=== PATIENT | female | born 1980 | race Caucasian/White ===

== ENCOUNTER 2020-11-05 01:41 | Emergency (ER) | payer OTHER, SELFPAY ==
[2020-11-05 01:57] VITALS: BP 160/81; PULSE 83; RESP 16; TEMP 36.4; O2SAT 97; BMI 37.5
[2020-11-05] MEDS: KETOROLAC 30 MG/ML VIAL IM (02:53)
[2020-11-05] MEDS: OXYCODONE/ACETAMINOPHEN 5/325 TABLET 2 TAB PO (02:54)
--- NOTE | 2020-11-05 05:07 | ED.DENTAL ---
HPI - Dental/Oral General Chief complaint: Dental/Oral Stated complaint: Tooth infection-so much pain Time Seen by Provider: 11/05/20 02:00 Source: patient Mode of arrival: Ambulatory Limitations: no limitations History of Present Illness HPI Narrative: Otherwise healthy 40-year-old woman prevents with severe dental pain involving tooth number 31 she apparently has had issues with tooth 2. Above and while having that pulled there was in appropriate drilling that was reportedly done in tooth 1. Requiring it to be pulled also. This happened over a year ago and has left her significantly traumatized to the point that she has been unwilling to follow-up with her dentist regarding current pain with tooth number 31 tonight the pain was so severe she comes in for further evaluation. She denies facial swelling, purulence discharge into her mouth, fevers, cough, chills, vomiting, abdominal pain. Related Data Previous Rx's Medication Instructions Recorded amoxicillin 500 mg capsule 500 mg PO TID #15 cap 11/05/20 oxycodone-acetaminophen 5 mg-325 1 tab PO Q6H PRN #16 tab 11/05/20 mg tablet Allergies Allergy/AdvReac Type Severity Reaction Status Date / Time No Known Drug Allergies Allergy Verified 11/05/20 02:52 Review of Systems Review of Systems Narrative: Remainder of complete review of systems is otherwise unremarkable except for that included in the HPI. Patient History Social History Smoking Status: Never smoker Smoking Status: Never smoker alcohol intake frequency: holidays/special occasions only Substance Use Type: marijuana Exam Narrative Exam Narrative: General: Alert appropriate in no acute distress HEENT: Tooth number 31 with significant central tirso and exposed root without obvious infection or abscess. No facial redness or swelling Respiratory: Able to speak in full sentences, no obvious respiratory distress Skin: No obvious rashes, warm and dry Neurologic: Grossly intact no obvious asymmetries or abnormalities Psych: appropriate insight and affect, cooperative Initial Vital Signs Initial Vital Signs: Vital Signs Temperature 97.6 F 11/05/20 01:57 Pulse Rate 83 11/05/20 01:57 Respiratory Rate 16 11/05/20 01:57 Blood Pressure 160/81 H 11/05/20 01:57 Pulse Oximetry 97 11/05/20 01:57 Course Orders Ordered: Discontinued Medications Ketorolac Tromethamine (Ketorolac 30 Mg/Ml Vial) 30 mg IM NOW ONE Stop: 11/05/20 02:47 Last Admin: 11/05/20 02:53 Dose: 30 mg Documented by: TAYLOR Oxycodone/Acetaminophen (Oxycodone/Acetaminophen 5/325 Tablet) 2 tab PO NOW ONE Stop: 11/05/20 02:47 Last Admin: 11/05/20 02:54 Dose: 2 tab Documented by: TAYLOR Vital Signs Vital signs: Vital Signs - 8 hr 11/05/20 01:57 Temperature 97.6 F Pulse Rate 83 Respiratory Rate 16 Blood Pressure 160/81 H Pulse Oximetry 97 MDM - Dental/Oral MDM Narrative Medical decision making narrative: 40-year-old woman with large dental tirso tooth number 31 exposed root increasing pain. Responded nicely to IM Toradol 2 Percocet and will be discharged home with prescription for brief course of narcotics along with antibiotics and suggestion to find some dental wax to help cover up the exposed nerve root and contact her dentist for definitive treatment of this issue. She is safe for home discharge Discharge Plan Departure Patient Disposition: Home Clinical Impression: Dental caries Instructions: DI for Dental Pain Activity Restrictions/Additional Instructions: Thank you for coming in today That back to has a very large cavity with exposed root and that is why it is hurting so much. Using 400 mg of ibuprofen (2 [id number] pills) and 1 Tylenol every 6 hours can be very helpful in controlling pain. For severe pain using 1 Percocet with 400 mg of ibuprofen can be helpful. If you are able to find some dental wax at the drugstore, using that to cover the giant cavity will help so that the root isn't exposed to air every time you take breath For definitive treatment, you do need to see a dentist to have this fixed. I am also going to suggest that we do 5 days of antibiotics to make sure that infection isn't making the pain worse. I wish you the best Prescriptions: New amoxicillin 500 mg capsule 500 mg PO TID Qty: 15 RF: 0 oxycodone-acetaminophen 5-325 mg tablet 1 tab PO Q6H PRN (Reason: pain) Qty: 16 RF: 0
== END 2020-11-05 03:00 | disposition home or self-care (01) ==
PROVIDERS: Emergency Provider Emergency Medicine
DX: K02.9 Dental caries, unspecified (principal)
CPT/HCPCS: 96372; 99283; J1885

== ENCOUNTER 2021-05-20 11:04 | Emergency (ER) | payer OTHER, SELFPAY ==
[2021-05-20] VITALS (12 sets, daily range): BP systolic 124–176; BP diastolic 59–93; PULSE 73–87; RESP 13–24; TEMP 36.7; O2SAT 96–98; BMI 38.4
--- NOTE | 2021-05-20 11:44 | ED_ITS ---
HPI - Altered Mental Status <Lyndsey Bentley DO - Last Filed: 05/21/21 07:28> General Chief Complaint: Psychiatric Symptoms Stated Complaint: Nausea, vomiting, paranoia, rapid Heart rate Time Seen by Provider: 05/20/21 11:19 Source: patient and family Mode of arrival: Family Vehicle History of Present Illness HPI narrative: Patient is a 40-year-old female who presents with a variety of complaints. She presents with . Patient states that she has not felt well for the last 3 days. She has had rigors and sweats. She has a mild headache as well. Mild nausea, no vomiting. No painful or frequent urination no chest pain or shortness of breath. She denies any abdominal pain. She also reports that she is feeling quite paranoid she says people are out to get her in her family. If she says she is exposed provider who wrote her for the wrong dose of antidepressant medication which she had bad reaction to. She feels like the [employer] out to get her. states that this is not true. She is now taking Celexa he feels like that is better. reports that she is frantically cleaning as well. She is sleeping. No prior history of bipolar. She denies any suicidal thoughts or homicidal thoughts. Related Data Home Medications Medication Instructions Recorded Confirmed norgestimate-ethinyl estradiol 1 tab PO DAILY 05/20/21 05/20/21 0.18 mg/0.215mg/0.25mg-35 mcg(28)tablet (Tri-Linyah) sertraline 50 mg tablet 50 mg PO DAILY 05/20/21 05/20/21 Allergies Allergy/AdvReac Type Severity Reaction Status Date / Time No Known Drug Allergies Allergy Verified 11/05/20 02:52 Review of Systems <Lyndsey Bentley DO - Last Filed: 05/21/21 07:28> Review of Systems ROS Unobtainable: All systems reviewed & are unremarkable except as noted in HPI and below Constitutional Constitutional: Reports body ache(s), Reports chills, Reports excessive sweating, Reports fatigue and Reports fever(s) Eyes Eyes: Denies blind spots and Denies blurry vision Cardiovascular Cardiovascular: Denies chest pain, Denies syncope and Denies lightheadedness Respiratory Respiratory: Denies cough Gastrointestinal Gastrointestinal: Denies abdominal pain, Denies nausea and Denies vomiting Genitourinary Genitourinary: Denies urinary incontinence and Denies urinary hesitancy Musculoskeletal Musculoskeletal: Denies back pain and Denies myalgias Integumentary/Breasts Skin/Breast: Denies rash and Denies skin pain Neurologic Neurologic: Reports behavioral changes and Denies syncope Psychiatric Psychiatric: Reports as per HPI, Reports behavioral changes and Reports paranoia Endocrine Endocrine: Reports excessive sweating and Reports fatigue Patient History <Lyndsey Bentley DO - Last Filed: 05/21/21 07:28> Social History Smoking Status: Never smoker Smoking Status: Never smoker alcohol intake frequency: 0-2 drinks per day Substance Use Type: marijuana Exam <Lyndsey Bentley DO - Last Filed: 05/21/21 07:28> Initial Vital Signs Initial Vital Signs: Vital Signs Temperature 98.1 F 05/20/21 11:27 Pulse Rate 87 05/20/21 11:27 Respiratory Rate 24 05/20/21 11:27 Blood Pressure 167/93 H 05/20/21 11:27 Pulse Oximetry 98 05/20/21 11:27 GENERAL: Alert 40-year-old female in no acute distress. HEENT: Head atraumatic,EOMI, pupils reactive, face symmetric, moist mucous membranes CARDIOVASCULAR: Regular rate and rhythm without murmurs, rubs or gallops. RESPIRATORY: Breath sounds equal bilaterally, no wheezes rales or rhonchi. ABDOMEN: Soft, nontender. Normoactive bowel sounds all 4 quadrants. No guarding or rebound. EXTREMITIES: Normal range of motion, no clubbing or edema. Neurovascularly intact NEUROLOGICAL: Alert and oriented x4.Normal gait and speech. 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 <Bunny Davila MD - Last Filed: 05/21/21 06:19> Initial Vital Signs Initial Vital Signs: Vital Signs Temperature 98.1 F 05/20/21 11:27 Pulse Rate 87 05/20/21 11:27 Respiratory Rate 24 05/20/21 11:27 Blood Pressure 167/93 H 05/20/21 11:27 Pulse Oximetry 98 05/20/21 11:27 Course <DO Chance Boswell Last Filed: 05/21/21 07:28> Orders Ordered: Discontinued Medications Acetaminophen (Acetaminophen 325 Mg Tablet) 975 mg PO NOW ONE Stop: 05/20/21 13:14 Last Admin: 05/20/21 13:20 Dose: 975 mg Documented by: JESUS Ketorolac Tromethamine (Ketorolac 30 Mg/Ml Vial) 15 mg IV NOW ONE Stop: 05/20/21 17:04 Last Admin: 05/20/21 17:07 Dose: 15 mg Documented by: KATE Vital Signs Vital signs: Vital Signs - 8 hr 05/21/21 00:23 05/21/21 05:49 Pulse Rate 80 69 Respiratory Rate 16 16 Blood Pressure 139/74 129/81 Pulse Oximetry 96 99 <Bunny Davila MD - Last Filed: 05/21/21 06:19> Course Course Narrative: 7:00 p[address].. Sign out from Dr Bentley, patient is awaiting for acceptance of [facility]. Patient is medically cleared. Will need treatment for acute psychosis. Possible new onset bipolar. Patient is vo luntary and patient and family desire admission [facility] did call back and did accept patient. But will be transferred later in the night. Orders Ordered: Discontinued Medications Acetaminophen (Acetaminophen 325 Mg Tablet) 975 mg PO NOW ONE Stop: 05/20/21 13:14 Last Admin: 05/20/21 13:20 Dose: 975 mg Documented by: JESUS Ketorolac Tromethamine (Ketorolac 30 Mg/Ml Vial) 15 mg IV NOW ONE Stop: 05/20/21 17:04 Last Admin: 05/20/21 17:07 Dose: 15 mg Documented by: KATE Reevaluation(s) Reevaluation #1: Patient has been cooperative. Not agitated. Not work are ring any medications at this time Time: 21:00 Consultations Consultation #1: Spoke with social services technician. Patient likely will be accepted to [facility] Time: 19:45 Vital Signs Vital signs: Vital Signs - 8 hr 05/21/21 00:23 05/21/21 05:49 Pulse Rate 80 69 Respiratory Rate 16 16 Blood Pressure 139/74 129/81 Pulse Oximetry 96 99 MDM - Altered Mental Status <Lyndsey Bentley DO - Last Filed: 03/03/22 07:28> Lab Data Result diagrams: 05/20/21 11:35 05/20/21 11:35 Labs: Lab Results 05/20/21 05/20/21 05/20/21 Range/Units 11:13 11:35 11:35 WBC 7.5 (4.5-11.0) X10^3/uL RBC 4.78 (4.0-5.2) X10^6/uL Hgb 13.0 (12.0-16.0) g/dL Hct 38.8 (36-46) % MCV 81.3 (80-100) fL MCH 27.3 (26-34) PG MCHC 33.6 (30-36) % RDW 12.9 (11.6-14.8) % Plt Count 401 H (150-400) X10^3/uL Neut % (Auto) 71.6 (50-75) % Lymph % (Auto) 22.3 L (25-40) % [place] % (Auto) 5.2 (3-14) % Eos % (Auto) 0.4 L (2-4) % Baso % (Auto) 0.5 (0-2) % Neut # (Auto) 5400 (5769-9324) /uL Lymph # (Auto) 1700 (1641-5041) /uL [place] # (Auto) 400 (0-900) /uL Eos # (Auto) 0 (0-450) /uL Baso # (Auto) 0 (0-100) /uL Sodium 138 (137-145) mmol/L Potassium 3.5 (3.4-5.1) mmol/L Chloride 102 (98-107) mmol/L Carbon Dioxide 28 (22-32) mmol/L BUN 9 (7-17) mg/dL Creatinine 0.70 (0.52-1.04) mg/dL Estimated GFR > 60.0 (>60) mL/min BUN/Creatinine Ratio 12.9 (6-22) Glucose 101 H (70-100) mg/dL Lactate (0.7-2.1) mmol/L Calcium 9.3 (8.4-10.2) mg/dL Magnesium (1.6-2.3) mg/dL Total Bilirubin 0.6 (0.2-1.3) mg/dL AST 37 H (14-36) IU/L ALT 39 H (<35) IU/L Alkaline Phosphatase 41 (38-126) U/L Total Creatine Kinase 289 H (30-135) U/L CK-MB (CK-2) 2.19 (<2.37) ng/mL CK-MB (CK-2) Rel Index 0.8 L (1.5-5.0) % Troponin I 0.015 (0.01-0.034) ng/mL Total Protein 7.6 (6.3-8.2) g/dL Albumin 4.6 (3.5-5.0) g/dL Globulin 3.0 (1.7-4.1) g/dL Albumin/Globulin Ratio 1.5 (1.0-2.8) Procalcitonin < 0.03 (<0.5) ng/mL TSH (0.47-4.68) uIU/mL Urine Color Urine Appearance Urine pH (4.5-8.0) Ur Specific [place] (1.000-1.035) Urine Protein (Negative) Urine Glucose (UA) (Negative) g/dL Urine Ketones (NEGATIVE) Urine Occult Blood (Negative) Urine Nitrate (Negative) Urine Bilirubin (NEGATIVE) Urine Urobilinogen (0.2) E.U./dL Ur Leukocyte Esterase (NEGATIVE) Urine RBC (0-5/HPF) Urine WBC (0-5/HPF) Urine Bacteria (None) Ur Culture Indicated? Micro UA Comment Urine Test (Negative) Salicylates (<20) mg/dL U Opiates 300ng/mL cut (Negative) Ur Oxycodone Screen (Negative) Urine Methadone Screen (Negative) Acetaminophen (10-30) ug/mL Ur Barbiturates Screen (Negative) U Tricyclic Antidepress (Negative) Ur Phencyclidine Scrn (Negative) Ur Amphetamines Screen (Negative) U Methamphetamines Scrn (Negative) Ur MDMA Scrn (Ecstasy) (Negative) U Benzodiazepines Scrn (Negative) Urine Cocaine Screen (Negative) U Marijuana (THC) Screen (Negative) Ethyl Alcohol ( - 10) mg/dL SARS-CoV-2 (PCR) Negative (Negative) 05/20/21 05/20/21 05/20/21 Range/Units 11:35 11:35 11:35 WBC (4.5-11.0) X10^3/uL RBC (4.0-5.2) X10^6/uL Hgb (12.0-16.0) g/dL Hct (36-46) % MCV (80-100) fL MCH (26-34) PG MCHC (30-36) % RDW (11.6-14.8) % Plt Count (150-400) X10^3/uL Neut % (Auto) (50-75) % Lymph % (Auto) (25-40) % [place] % (Auto) (3-14) % Eos % (Auto) (2-4) % Baso % (Auto) (0-2) % Neut # (Auto) (0506-8400) /uL Lymph # (Auto) (0296-0772) /uL [place] # (Auto) (0-900) /uL Eos # (Auto) (0-450) /uL Baso # (Auto) (0-100) /uL Sodium (137-145) mmol/L Potassium (3.4-5.1) mmol/L Chloride (98-107) mmol/L Carbon Dioxide (22-32) mmol/L BUN (7-17) mg/dL Creatinine (0.52-1.04) mg/dL Estimated GFR (>60) mL/min BUN/Creatinine Ratio (6-22) Glucose (70-100) mg/dL Lactate 0.8 (0.7-2.1) mmol/L Calcium (8.4-10.2) mg/dL Magnesium (1.6-2.3) mg/dL Total Bilirubin (0.2-1.3) mg/dL AST (14-36) IU/L ALT (<35) IU/L Alkaline Phosphatase (38-126) U/L Total Creatine Kinase (30-135) U/L CK-MB (CK-2) (<2.37) ng/mL CK-MB (CK-2) Rel Index (1.5-5.0) % Troponin I (0.01-0.034) ng/mL Total Protein (6.3-8.2) g/dL Albumin (3.5-5.0) g/dL Globulin (1.7-4.1) g/dL Albumin/Globulin Ratio (1.0-2.8) Procalcitonin (<0.5) ng/mL TSH 1.60 (0.47-4.68) uIU/mL Urine Color Urine Appearance Urine pH (4.5-8.0) Ur Specific [place] (1.000-1.035) Urine Protein (Negative) Urine Glucose (UA) (Negative) g/dL Urine Ketones (NEGATIVE) Urine Occult Blood (Negative) Urine Nitrate (Negative) Urine Bilirubin (NEGATIVE) Urine Urobilinogen (0.2) E.U./dL Ur Leukocyte Esterase (NEGATIVE) Urine RBC (0-5/HPF) Urine WBC (0-5/HPF) Urine Bacteria (None) Ur Culture Indicated? Micro UA Comment Urine Test (Negative) Salicylates < 1.0 (<20) mg/dL U Opiates 300ng/mL cut (Negative) Ur Oxycodone Screen (Negative) Urine Methadone Screen (Negative) Acetaminophen < 10 L (10-30) ug/mL Ur Barbiturates Screen (Negative) U Tricyclic Antidepress (Negative) Ur Phencyclidine Scrn (Negative) Ur Amphetamines Screen (Negative) U Methamphetamines Scrn (Negative) Ur MDMA Scrn (Ecstasy) (Negative) U Benzodiazepines Scrn (Negative) Urine Cocaine Screen (Negative) U Marijuana (THC) Screen (Negative) Ethyl Alcohol < 10 ( - 10) mg/dL SARS-CoV-2 (PCR) (Negative) 05/20/21 05/20/21 05/20/21 Range/Units 12:45 12:45 12:58 WBC (4.5-11.0) X10^3/uL RBC (4.0-5.2) X10^6/uL Hgb (12.0-16.0) g/dL Hct (36-46) % MCV (80-100) fL MCH (26-34) PG MCHC (30-36) % RDW (11.6-14.8) % Plt Count (150-400) X10^3/uL Neut % (Auto) (50-75) % Lymph % (Auto) (25-40) % [place] % (Auto) (3-14) % Eos % (Auto) (2-4) % Baso % (Auto) (0-2) % Neut # (Auto) (8864-6477) /uL Lymph # (Auto) (8092-2981) /uL [place] # (Auto) (0-900) /uL Eos # (Auto) (0-450) /uL Baso # (Auto) (0-100) /uL Sodium (137-145) mmol/L Potassium (3.4-5.1) mmol/L Chloride (98-107) mmol/L Carbon Dioxide (22-32) mmol/L BUN (7-17) mg/dL Creatinine (0.52-1.04) mg/dL Estimated GFR (>60) mL/min BUN/Creatinine Ratio (6-22) Glucose (70-100) mg/dL Lactate (0.7-2.1) mmol/L Calcium (8.4-10.2) mg/dL Magnesium (1.6-2.3) mg/dL Total Bilirubin (0.2-1.3) mg/dL AST (14-36) IU/L ALT (<35) IU/L Alkaline Phosphatase (38-126) U/L Total Creatine Kinase (30-135) U/L CK-MB (CK-2) (<2.37) ng/mL CK-MB (CK-2) Rel Index (1.5-5.0) % Troponin I (0.01-0.034) ng/mL Total Protein (6.3-8.2) g/dL Albumin (3.5-5.0) g/dL Globulin (1.7-4.1) g/dL Albumin/Globulin Ratio (1.0-2.8) Procalcitonin (<0.5) ng/mL TSH (0.47-4.68) uIU/mL Urine Color Yellow Urine Appearance Clear Urine pH 6.5 (4.5-8.0) Ur Specific [place] <=1.005 (1.000-1.035) Urine Protein Negative (Negative) Urine Glucose (UA) Negative (Negative) g/dL Urine Ketones 1+ H (NEGATIVE) Urine Occult Blood Trace-lysed (Negative) Urine Nitrate Negative (Negative) Urine Bilirubin Negative (NEGATIVE) Urine Urobilinogen 0.2 (0.2) E.U./dL Ur Leukocyte Esterase Negative (NEGATIVE) Urine RBC None seen (0-5/HPF) Urine WBC None seen (0-5/HPF) Urine Bacteria None seen (None) Ur Culture Indicated? Cult not indicated Micro UA Comment Microscopic normal Urine Test Negative (Negative) Salicylates (<20) mg/dL U Opiates 300ng/mL cut Negative (Negative) Ur Oxycodone Screen Negative (Negative) Urine Methadone Screen Negative (Negative) Acetaminophen (10-30) ug/mL Ur Barbiturates Screen Negative (Negative) U Tricyclic Antidepress Negative (Negative) Ur Phencyclidine Scrn Negative (Negative) Ur Amphetamines Screen Negative (Negative) U Methamphetamines Scrn Negative (Negative) Ur MDMA Scrn (Ecstasy) Negative (Negative) U Benzodiazepines Scrn Negative (Negative) Urine Cocaine Screen Negative (Negative) U Marijuana (THC) Screen Positive H (Negative) Ethyl Alcohol ( - 10) mg/dL SARS-CoV-2 (PCR) (Negative) 05/20/21 Range/Units 14:54 WBC (4.5-11.0) X10^3/uL RBC (4.0-5.2) X10^6/uL Hgb (12.0-16.0) g/dL Hct (36-46) % MCV (80-100) fL MCH (26-34) PG MCHC (30-36) % RDW (11.6-14.8) % Plt Count (150-400) X10^3/uL Neut % (Auto) (50-75) % Lymph % (Auto) (25-40) % [place] % (Auto) (3-14) % Eos % (Auto) (2-4) % Baso % (Auto) (0-2) % Neut # (Auto) (6887-9603) /uL Lymph # (Auto) (7191-4784) /uL [place] # (Auto) (0-900) /uL Eos # (Auto) (0-450) /uL Baso # (Auto) (0-100) /uL Sodium (137-145) mmol/L Potassium (3.4-5.1) mmol/L Chloride (98-107) mmol/L Carbon Dioxide (22-32) mmol/L BUN (7-17) mg/dL Creatinine (0.52-1.04) mg/dL Estimated GFR (>60) mL/min BUN/Creatinine Ratio (6-22) Glucose (70-100) mg/dL Lactate (0.7-2.1) mmol/L Calcium (8.4-10.2) mg/dL Magnesium 2.3 (1.6-2.3) mg/dL Total Bilirubin (0.2-1.3) mg/dL AST (14-36) IU/L ALT (<35) IU/L Alkaline Phosphatase (38-126) U/L Total Creatine Kinase (30-135) U/L CK-MB (CK-2) (<2.37) ng/mL CK-MB (CK-2) Rel Index (1.5-5.0) % Troponin I (0.01-0.034) ng/mL Total Protein (6.3-8.2) g/dL Albumin (3.5-5.0) g/dL Globulin (1.7-4.1) g/dL Albumin/Globulin Ratio (1.0-2.8) Procalcitonin (<0.5) ng/mL TSH (0.47-4.68) uIU/mL Urine Color Urine Appearance Urine pH (4.5-8.0) Ur Specific [place] (1.000-1.035) Urine Protein (Negative) Urine Glucose (UA) (Negative) g/dL Urine Ketones (NEGATIVE) Urine Occult Blood (Negative) Urine Nitrate (Negative) Urine Bilirubin (NEGATIVE) Urine Urobilinogen (0.2) E.U./dL Ur Leukocyte Esterase (NEGATIVE) Urine RBC (0-5/HPF) Urine WBC (0-5/HPF) Urine Bacteria (None) Ur Culture Indicated? Micro UA Comment Urine Test (Negative) Salicylates (<20) mg/dL U Opiates 300ng/mL cut (Negative) Ur Oxycodone Screen (Negative) Urine Methadone Screen (Negative) Acetaminophen (10-30) ug/mL Ur Barbiturates Screen (Negative) U Tricyclic Antidepress (Negative) Ur Phencyclidine Scrn (Negative) Ur Amphetamines Screen (Negative) U Methamphetamines Scrn (Negative) Ur MDMA Scrn (Ecstasy) (Negative) U Benzodiazepines Scrn (Negative) Urine Cocaine Screen (Negative) U Marijuana (THC) Screen (Negative) Ethyl Alcohol ( - 10) mg/dL SARS-CoV-2 (PCR) (Negative) MDM Narrative Medical decision making narrative: Patient has been medically cleared. She has no sign of infection. She is quite paranoid. She has been evaluated by social Work. At this time like voluntary placement in mental health facility. She had has been do not feel safe with her at home with children. She is not able to care for them properly seems very distracted. patient accepted to [facility] <Bunny Davila MD - Last Filed: 05/21/21 06:19> Differential Diagnosis Differential diagnosis: Likely other (Acute psychosis/new onset bipolar.) Lab Data Labs: Lab Results 05/20/21 05/20/21 05/20/21 Range/Units 11:13 11:35 11:35 WBC 7.5 (4.5-11.0) X10^3/uL RBC 4.78 (4.0-5.2) X10^6/uL Hgb 13.0 (12.0-16.0) g/dL Hct 38.8 (36-46) % MCV 81.3 (80-100) fL MCH 27.3 (26-34) PG MCHC 33.6 (30-36) % RDW 12.9 (11.6-14.8) % Plt Count 401 H (150-400) X10^3/uL Neut % (Auto) 71.6 (50-75) % Lymph % (Auto) 22.3 L (25-40) % [place] % (Auto) 5.2 (3-14) % Eos % (Auto) 0.4 L (2-4) % Baso % (Auto) 0.5 (0-2) % Neut # (Auto) 5400 (5159-7484) /uL Lymph # (Auto) 1700 (3416-6123) /uL [place] # (Auto) 400 (0-900) /uL Eos # (Auto) 0 (0-450) /uL Baso # (Auto) 0 (0-100) /uL Sodium 138 (137-145) mmol/L Potassium 3.5 (3.4-5.1) mmol/L Chloride 102 (98-107) mmol/L Carbon Dioxide 28 (22-32) mmol/L BUN 9 (7-17) mg/dL Creatinine 0.70 (0.52-1.04) mg/dL Estimated GFR > 60.0 (>60) mL/min BUN/Creatinine Ratio 12.9 (6-22) Glucose 101 H (70-100) mg/dL Lactate (0.7-2.1) mmol/L Calcium 9.3 (8.4-10.2) mg/dL Magnesium (1.6-2.3) mg/dL Total Bilirubin 0.6 (0.2-1.3) mg/dL AST 37 H (14-36) IU/L ALT 39 H (<35) IU/L Alkaline Phosphatase 41 (38-126) U/L Total Creatine Kinase 289 H (30-135) U/L CK-MB (CK-2) 2.19 (<2.37) ng/mL CK-MB (CK-2) Rel Index 0.8 L (1.5-5.0) % Troponin I 0.015 (0.01-0.034) ng/mL Total Protein 7.6 (6.3-8.2) g/dL Albumin 4.6 (3.5-5.0) g/dL Globulin 3.0 (1.7-4.1) g/dL Albumin/Globulin Ratio 1.5 (1.0-2.8) Procalcitonin < 0.03 (<0.5) ng/mL TSH (0.47-4.68) uIU/mL Urine Color Urine Appearance Urine pH (4.5-8.0) Ur Specific [place] (1.000-1.035) Urine Protein (Negative) Urine Glucose (UA) (Negative) g/dL Urine Ketones (NEGATIVE) Urine Occult Blood (Negative) Urine Nitrate (Negative) Urine Bilirubin (NEGATIVE) Urine Urobilinogen (0.2) E.U./dL Ur Leukocyte Esterase (NEGATIVE) Urine RBC (0-5/HPF) Urine WBC (0-5/HPF) Urine Bacteria (None) Ur Culture Indicated? Micro UA Comment Urine Test (Negative) Salicylates (<20) mg/dL U Opiates 300ng/mL cut (Negative) Ur Oxycodone Screen (Negative) Urine Methadone Screen (Negative) Acetaminophen (10-30) ug/mL Ur Barbiturates Screen (Negative) U Tricyclic Antidepress (Negative) Ur Phencyclidine Scrn (Negative) Ur Amphetamines Screen (Negative) U Methamphetamines Scrn (Negative) Ur MDMA Scrn (Ecstasy) (Negative) U Benzodiazepines Scrn (Negative) Urine Cocaine Screen (Negative) U Marijuana (THC) Screen (Negative) Ethyl Alcohol ( - 10) mg/dL SARS-CoV-2 (PCR) Negative (Negative) 05/20/21 05/20/21 05/20/21 Range/Units 11:35 11:35 11:35 WBC (4.5-11.0) X10^3/uL RBC (4.0-5.2) X10^6/uL Hgb (12.0-16.0) g/dL Hct (36-46) % MCV (80-100) fL MCH (26-34) PG MCHC (30-36) % RDW (11.6-14.8) % Plt Count (150-400) X10^3/uL Neut % (Auto) (50-75) % Lymph % (Auto) (25-40) % [place] % (Auto) (3-14) % Eos % (Auto) (2-4) % Baso % (Auto) (0-2) % Neut # (Auto) (5815-7937) /uL Lymph # (Auto) (2666-3872) /uL [place] # (Auto) (0-900) /uL Eos # (Auto) (0-450) /uL Baso # (Auto) (0-100) /uL Sodium (137-145) mmol/L Potassium (3.4-5.1) mmol/L Chloride (98-107) mmol/L Carbon Dioxide (22-32) mmol/L BUN (7-17) mg/dL Creatinine (0.52-1.04) mg/dL Estimated GFR (>60) mL/min BUN/Creatinine Ratio (6-22) Glucose (70-100) mg/dL Lactate 0.8 (0.7-2.1) mmol/L Calcium (8.4-10.2) mg/dL Magnesium (1.6-2.3) mg/dL Total Bilirubin (0.2-1.3) mg/dL AST (14-36) IU/L ALT (<35) IU/L Alkaline Phosphatase (38-126) U/L Total Creatine Kinase (30-135) U/L CK-MB (CK-2) (<2.37) ng/mL CK-MB (CK-2) Rel Index (1.5-5.0) % Troponin I (0.01-0.034) ng/mL Total Protein (6.3-8.2) g/dL Albumin (3.5-5.0) g/dL Globulin (1.7-4.1) g/dL Albumin/Globulin Ratio (1.0-2.8) Procalcitonin (<0.5) ng/mL TSH 1.60 (0.47-4.68) uIU/mL Urine Color Urine Appearance Urine pH (4.5-8.0) Ur Specific [place] (1.000-1.035) Urine Protein (Negative) Urine Glucose (UA) (Negative) g/dL Urine Ketones (NEGATIVE) Urine Occult Blood (Negative) Urine Nitrate (Negative) Urine Bilirubin (NEGATIVE) Urine Urobilinogen (0.2) E.U./dL Ur Leukocyte Esterase (NEGATIVE) Urine RBC (0-5/HPF) Urine WBC (0-5/HPF) Urine Bacteria (None) Ur Culture Indicated? Micro UA Comment Urine Test (Negative) Salicylates < 1.0 (<20) mg/dL U Opiates 300ng/mL cut (Negative) Ur Oxycodone Screen (Negative) Urine Methadone Screen (Negative) Acetaminophen < 10 L (10-30) ug/mL Ur Barbiturates Screen (Negative) U Tricyclic Antidepress (Negative) Ur Phencyclidine Scrn (Negative) Ur Amphetamines Screen (Negative) U Methamphetamines Scrn (Negative) Ur MDMA Scrn (Ecstasy) (Negative) U Benzodiazepines Scrn (Negative) Urine Cocaine Screen (Negative) U Marijuana (THC) Screen (Negative) Ethyl Alcohol < 10 ( - 10) mg/dL SARS-CoV-2 (PCR) (Negative) 05/20/21 05/20/21 05/20/21 Range/Units 12:45 12:45 12:58 WBC (4.5-11.0) X10^3/uL RBC (4.0-5.2) X10^6/uL Hgb (12.0-16.0) g/dL Hct (36-46) % MCV (80-100) fL MCH (26-34) PG MCHC (30-36) % RDW (11.6-14.8) % Plt Count (150-400) X10^3/uL Neut % (Auto) (50-75) % Lymph % (Auto) (25-40) % [place] % (Auto) (3-14) % Eos % (Auto) (2-4) % Baso % (Auto) (0-2) % Neut # (Auto) (7973-4932) /uL Lymph # (Auto) (6179-4205) /uL [place] # (Auto) (0-900) /uL Eos # (Auto) (0-450) /uL Baso # (Auto) (0-100) /uL Sodium (137-145) mmol/L Potassium (3.4-5.1) mmol/L Chloride (98-107) mmol/L Carbon Dioxide (22-32) mmol/L BUN (7-17) mg/dL Creatinine (0.52-1.04) mg/dL Estimated GFR (>60) mL/min BUN/Creatinine Ratio (6-22) Glucose (70-100) mg/dL Lactate (0.7-2.1) mmol/L Calcium (8.4-10.2) mg/dL Magnesium (1.6-2.3) mg/dL Total Bilirubin (0.2-1.3) mg/dL AST (14-36) IU/L ALT (<35) IU/L Alkaline Phosphatase (38-126) U/L Total Creatine Kinase (30-135) U/L CK-MB (CK-2) (<2.37) ng/mL CK-MB (CK-2) Rel Index (1.5-5.0) % Troponin I (0.01-0.034) ng/mL Total Protein (6.3-8.2) g/dL Albumin (3.5-5.0) g/dL Globulin (1.7-4.1) g/dL Albumin/Globulin Ratio (1.0-2.8) Procalcitonin (<0.5) ng/mL TSH (0.47-4.68) uIU/mL Urine Color Yellow Urine Appearance Clear Urine pH 6.5 (4.5-8.0) Ur Specific [place] <=1.005 (1.000-1.035) Urine Protein Negative (Negative) Urine Glucose (UA) Negative (Negative) g/dL Urine Ketones 1+ H (NEGATIVE) Urine Occult Blood Trace-lysed (Negative) Urine Nitrate Negative (Negative) Urine Bilirubin Negative (NEGATIVE) Urine Urobilinogen 0.2 (0.2) E.U./dL Ur Leukocyte Esterase Negative (NEGATIVE) Urine RBC None seen (0-5/HPF) Urine WBC None seen (0-5/HPF) Urine Bacteria None seen (None) Ur Culture Indicated? Cult not indicated Micro UA Comment Microscopic normal Urine Test Negative (Negative) Salicylates (<20) mg/dL U Opiates 300ng/mL cut Negative (Negative) Ur Oxycodone Screen Negative (Negative) Urine Methadone Screen Negative (Negative) Acetaminophen (10-30) ug/mL Ur Barbiturates Screen Negative (Negative) U Tricyclic Antidepress Negative (Negative) Ur Phencyclidine Scrn Negative (Negative) Ur Amphetamines Screen Negative (Negative) U Methamphetamines Scrn Negative (Negative) Ur MDMA Scrn (Ecstasy) Negative (Negative) U Benzodiazepines Scrn Negative (Negative) Urine Cocaine Screen Negative (Negative) U Marijuana (THC) Screen Positive H (Negative) Ethyl Alcohol ( - 10) mg/dL SARS-CoV-2 (PCR) (Negative) 05/20/21 Range/Units 14:54 WBC (4.5-11.0) X10^3/uL RBC (4.0-5.2) X10^6/uL Hgb (12.0-16.0) g/dL Hct (36-46) % MCV (80-100) fL MCH (26-34) PG MCHC (30-36) % RDW (11.6-14.8) % Plt Count (150-400) X10^3/uL Neut % (Auto) (50-75) % Lymph % (Auto) (25-40) % [place] % (Auto) (3-14) % Eos % (Auto) (2-4) % Baso % (Auto) (0-2) % Neut # (Auto) (2834-3219) /uL Lymph # (Auto) (1961-4580) /uL [place] # (Auto) (0-900) /uL Eos # (Auto) (0-450) /uL Baso # (Auto) (0-100) /uL Sodium (137-145) mmol/L Potassium (3.4-5.1) mmol/L Chloride (98-107) mmol/L Carbon Dioxide (22-32) mmol/L BUN (7-17) mg/dL Creatinine (0.52-1.04) mg/dL Estimated GFR (>60) mL/min BUN/Creatinine Ratio (6-22) Glucose (70-100) mg/dL Lactate (0.7-2.1) mmol/L Calcium (8.4-10.2) mg/dL Magnesium 2.3 (1.6-2.3) mg/dL Total Bilirubin (0.2-1.3) mg/dL AST (14-36) IU/L ALT (<35) IU/L Alkaline Phosphatase (38-126) U/L Total Creatine Kinase (30-135) U/L CK-MB (CK-2) (<2.37) ng/mL CK-MB (CK-2) Rel Index (1.5-5.0) % Troponin I (0.01-0.034) ng/mL Total Protein (6.3-8.2) g/dL Albumin (3.5-5.0) g/dL Globulin (1.7-4.1) g/dL Albumin/Globulin Ratio (1.0-2.8) Procalcitonin (<0.5) ng/mL TSH (0.47-4.68) uIU/mL Urine Color Urine Appearance Urine pH (4.5-8.0) Ur Specific [place] (1.000-1.035) Urine Protein (Negative) Urine Glucose (UA) (Negative) g/dL Urine Ketones (NEGATIVE) Urine Occult Blood (Negative) Urine Nitrate (Negative) Urine Bilirubin (NEGATIVE) Urine Urobilinogen (0.2) E.U./dL Ur Leukocyte Esterase (NEGATIVE) Urine RBC (0-5/HPF) Urine WBC (0-5/HPF) Urine Bacteria (None) Ur Culture Indicated? Micro UA Comment Urine Test (Negative) Salicylates (<20) mg/dL U Opiates 300ng/mL cut (Negative) Ur Oxycodone Screen (Negative) Urine Methadone Screen (Negative) Acetaminophen (10-30) ug/mL Ur Barbiturates Screen (Negative) U Tricyclic Antidepress (Negative) Ur Phencyclidine Scrn (Negative) Ur Amphetamines Screen (Negative) U Methamphetamines Scrn (Negative) Ur MDMA Scrn (Ecstasy) (Negative) U Benzodiazepines Scrn (Negative) Urine Cocaine Screen (Negative) U Marijuana (THC) Screen (Negative) Ethyl Alcohol ( - 10) mg/dL SARS-CoV-2 (PCR) (Negative) Discharge Plan Departure Patient Disposition: Xfer Psychiatric Hosp Clinical Impression: Acute psychosis
[2021-05-20 11:55] LABS: Add Manual Diff / Slide Review NO; Basophils Absolute Auto 0 /uL (0-100); Basophils Percent Auto 0.5 % (0-2); Eosinophils Absolute Auto 0 /uL (0-450); Eosinophils Percent Auto 0.4 % (2-4); Hematocrit 38.8 % (36-46); Lymphocytes Absolute Auto 1700 /uL (1100-4500); Lymphocytes Percent Auto 22.3 % (25-40); Mean Corpuscular HGB Conc 33.6 % (30-36); Mean Corpuscular Hemoglobin 27.3 PG (26-34); Mean Corpuscular Volume 81.3 fL (80-100); Monocytes Absolute Auto 400 /uL (0-900); Monocytes Percent Auto 5.2 % (3-14); Neutrophils Absolute Auto 5400 /uL (1500-7000); Neutrophils Percent Auto 71.6 % (50-75); Platelet Count 401 X10^3/uL (150-400); Red Blood Cell Count 4.78 X10^6/uL (4.0-5.2); Red Cell Distribution Width 12.9 % (11.6-14.8); White Blood Cell Count 7.5 X10^3/uL (4.5-11.0)
[2021-05-20 12:03] LABS: Alanine Aminotransferase 39 IU/L (<35); Albumin 4.6 g/dL (3.5-5.0); Albumin Globulin Ratio 1.5 (1.0-2.8); Alkaline Phosphatase 41 U/L (38-126); Aspartate Aminotransferase 37 IU/L (14-36); BUN Creatinine Ratio 12.9 (6-22); Bilirubin Total 0.6 mg/dL (0.2-1.3); Blood Urea Nitrogen 9 mg/dL (7-17); Calcium 9.3 mg/dL (8.4-10.2); Carbon Dioxide 28 mmol/L (22-32); Chloride 102 mmol/L (98-107); Creatine Kinase 289 U/L (30-135); Estimated Glomerular Filt Rate > 60.0 mL/min (>60); Glucose 101 mg/dL (70-100); HEMOLYSIS < 15 (0-50); Potassium 3.5 mmol/L (3.4-5.1); Sodium 138 mmol/L (137-145); Total Protein 7.6 g/dL (6.3-8.2)
[2021-05-20 12:04] LABS: Acetaminophen < 10 ug/mL (10-30); Ethanol (ETOH) < 10 mg/dL; Lactate (Lactic Acid) 0.8 mmol/L (0.7-2.1); Salicylate < 1.0 mg/dL (<20)
--- NOTE | 2021-05-20 12:05 | DI.CT.S_ITS ---
PROCEDURE: CT HEAD/BRAIN WO CON INDICATIONS: Behavior changes TECHNIQUE: Noncontrast 4.5 mm thick angled axial sections acquired from the foramen magnum to the vertex, with coronal and sagittal reformats. For radiation dose reduction, the following was used: automated exposure control, adjustment of mA and/or kV according to patient size. COMPARISON: None. FINDINGS: Image quality: Excellent. CSF spaces: Basal cisterns are patent. No extra-axial fluid collections. Ventricles are normal in size and shape. Brain: No midline shift. No intracranial masses or hemorrhage. Lama-white matter interface is normal. Skull and face: Calvarium and visualized facial bones are intact, without suspicious lesions. Sinuses: Visualized sinuses and mastoids are clear. IMPRESSION: 1. No acute intracranial abnormalities. Dictated by: Dorie Mcelroy M.D. on 05/20/2021 at 13:05 Approved by: Dorie Mcelroy M.D. on 05/20/2021 at 13:06
[2021-05-20 12:15] LABS: Troponin I 0.015 ng/mL (0.01-0.034)
[2021-05-20 12:19] LABS: CKMB % Relative Index 0.8 % (1.5-5.0); Creatine Kinase MB 2.19 ng/mL (<2.37)
[2021-05-20 12:20] LABS: Procalcitonin < 0.03 ng/mL (<0.5)
[2021-05-20 12:39] LABS: COVID19 -Nasal RAPID Negative (Negative)
[2021-05-20 12:58] LABS: Appearance Urine UA CLEAR; Bilirubin Urine UA NEGATIVE (NEGATIVE); Color Urine UA YELLOW; Glucose Urine UA NEGATIVE (Negative); Ketones Urine UA 1+ (NEGATIVE); Leukocyte Esterase Urine UA NEGATIVE (NEGATIVE); Nitrite Urine UA NEGATIVE (Negative); Occult Blood Urine UA TRACE-LYSED (Negative); Protein Urine UA NEGATIVE (Negative); Specific Gravity Urine UA <=1.005 (1.000-1.035); Urobilinogen Urine UA 0.2 E.U./dL (0.2)
[2021-05-20 13:01] LABS: Pregnancy Test Urine Negative (Negative)
[2021-05-20 13:01] LABS: UR Morphine/Opiate cutoff 300 Negative (Negative); Ur Creatinine Normal (Normal); Ur Specific Gravity Normal (Normal); Urine Amphetamines Negative (Negative); Urine Barbiturates Negative (Negative); Urine Benzodiazepines Negative (Negative); Urine Cocaine Negative (Negative); Urine MDMA Negative (Negative); Urine Methadone Negative (Negative); Urine Methamphetamines Negative (Negative); Urine Oxycodone Negative (Negative); Urine Phencyclidine Negative (Negative); Urine Tetrahydrocannabinol Positive (Negative); Urine Tricyclic Antidepressant Negative (Negative); Urine pH Normal (Normal)
[2021-05-20 13:05] LABS: pH Urine UA 6.5 (4.5-8.0)
--- NOTE | 2021-05-20 13:06 | PC.NURSE ---
at bedside. Pt is calm and cooperative at this time
[2021-05-20] MEDS: ACETAMINOPHEN 325 MG TABLET 975 MG PO (13:20)
[2021-05-20 13:22] LABS: Bacteria Urine None Seen; Culture Indicated Urine Cult Not Indicated; RBC Urine None Seen (0-5/HPF); Urine Comments Microscopic Normal; WBC Urine None Seen (0-5/HPF)
--- NOTE | 2021-05-20 14:00 | PC.NURSE ---
Speaking calmly with
--- NOTE | 2021-05-20 15:41 | CM.SWNOTE ---
ROTARY HELPER Assessment ROTARY HELPER - Canal Tender Assessment ROTARY HELPER/Canal Tender Assessment Time Spent with Patient Start date 05/20/21 Visit Start Time 13:40 End date 05/20/21 Visit End Time 14:30 Total time Care Management spent on 50 patient visit-in minutes Mental Health Screening Include Onset, Duration, Intensity Presenting Problem Patient presents to ED due to concern that she is dying. Patient states I feel like I have been poisoned. Patient endorses the dust in the house is harming her. Patient presents with paranoia and endorses not being able to do daily activities. Patient endorses she feels weak, does not feel safe at home and is scared for her life. Precipitating Event(s) Patient endorses she started feeling this way about two weeks ago after she made a complaint at [facility] for having a picture of the doctor in a Nazi uniform and providing patient medication that made her black out. Patient states that a doctor prescribed her Doxepin for her anxiety but it made symptoms worse and she did not trust the doctor. Patient endorses a new doctor prescribed her Sertraline, and she states it is helping. Patient endorses fear that hate groups are out to kill her and her family and that she does not want anyone in her family to leave the house. Patient has asked to stay home from work and children to stay home from school and daycare due to such fear and paranoia for the safety of her family and self. endorses that patient is unstable at baseline but symptoms of paranoia and illogical thoughts have increased in the last two weeks. previously stated to ED provider that patient has been ferociously cleaning. Patient Strengths Patient is open to seeking help and has good natural supports. Current Behavioral Health Provider(s) No current provider Include Facility, Provider, Ph. # Psych. Hx Mental Health and Chemical Patient endorses hx of Anxiety Dependency and SI. Patient endorses rx for Sertraline. Patient endorses that she used to use THC but stopped recently, patient endorses she also used to use ETOH but denies current use. Patient denies any other current substance use. Family Hx of Behavioral Abuse None reported Psychiatric Hospitalizations (date(s)/ no hx location) Psychosocial information & Support Patient is 40 y/o female who Systems resides with and two children (ages 2 and 10). Patient endorses several natural supports including and cousin. Per , cousin endorses hx of mental illness in the family. School/Work Not currently employed. 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 Legal Concerns Legal Matters - Outstanding Issues None reported Mental Status Orientation (Person/Place/Time) A/Ox3 Stated Mood not great, very weak Affect (Congruent with Mood?) Anxious, labile, congruent with mood. Thought Content - Specify/Describe Patient presents with anxiety Obsessions, Delusions, Hallucinations and paranoia. Patient believes she has been poisoned by dust in the home that that she has been injected with things by previous doctor. Patient endorses fear for the safety of herself and her family. Patient is fearful of dying. Patient believes that white supremacists are out to kill her and her family since she complained to [employer] about a Nazi picture on the wall. Patient believes that since she complained she has feared for her life and believes she was the cause of CEOs being fired. With patient's permission, ROTARY HELPER asks if he fears for his life and safety and he is tearful when responding and states that he feels safe at home and does not have those concerns. Thought Processes (Xkkdbqr-Vgsyfvhy-Xqbx Circumstantial Lzgfcyat-Ixiwguag-Sexnxwtywx- Khnjghyerwfsxw-Lmqauyk-Xdxxakvocksv- Thought Blocking) Speech (Tmnxwv-Reja-Tqxtpay-Rapid-Soft- normal Loud-Pressured) Motor (Cwipwn-Mlbmyzkkb-Whag-Other) Patient presents with wide eyes staring at ROTARY HELPER when ROTARY HELPER speaks. Patient is tearful at times. Insight (Ojwe-Avrt-Vavq/Limited) poor/limited Judgement (Negi-Hnti-Tegk/Limited) poor Impulse Control (Adequate-Impaired) adequate during assessment Memory (Sqeasfaeg-Yyvtpf-Gkckpf, intact, not formally assessed Impaired-Intact) Concentration (Intact-Impaired) Intact Attention (Intact-Impaired) Intact Behavior (Appropriate-Inappropriate) Appropriate Additional Comment Patient is communicative and calm while meeting with ROTARY HELPER. Risk Assessment Suicidal Ideation (Plan) No Homicidal Ideation (Plan) No Comment Patient denies current HI and SI. Patient endorses SI until she was prescribed Sertaline a few months ago. Patient endorses significant hx of SI when she was having tooth pain and she was afraid to go to the dentist. Patient denies specific plans of SI and that SI subsided after she addressed tooth pain and was prescribed sertraline. Patient states her thoughts of SI entailed I would be better off ending my life. Patient states I love my life , I don't want to , that is why I am so scared. Patient endorses that she has never had thoughts of HI until she thought of killing that doctor with the Nazi picture. Patient states she had a brief thought of killing him for a minute then felt shame. Patient denies current HI. Intervention Intervention ROTARY HELPER enters room to meet with patient. Present with patient is and patient provides consent for to be present. Patient presents as anxious, paranoid and concerned for her health, life and safety. Patient endorses concern that she and her family have been poisoned and will be killed. Patient has requested that her stay home from work for the last week and that her kids stay home from daycare and school. Patient endorses this concern for the last two weeks. ROTARY HELPER speaks to patient's privately who endorses that patient has always been unstable but endorses significant increase in patient's anxiety and paranoia . Patient endorses she is sleeping a lot and feels weak. Patient endorses she has not been able to eat well and has not had an appetite. Patient denies current HI and SI. Patient continues to endorse that she does not feel safe at home and fears for her live and her family's lives. ROTARY HELPER discusses voluntary inpatient hospitalization and patient is agreeable, patient' s states that he recommends this for patient as well. It is the opinion of this ROTARY HELPER that patient is appropriate for and will benefit from voluntary inpatient hospitalization for crisis stabilization, safety and medication management. ROTARY HELPER reviews the above with ED provider Dr. Bentley who indicates agreement and understanding. Plan RA Plan Patient is medically cleared, ROTARY HELPER to seek voluntary inpatient bed for patient. KAT Byrne
[2021-05-20 15:45] LABS: Magnesium 2.3 mg/dL (1.6-2.3)
[2021-05-20] MEDS: KETOROLAC 30 MG/ML VIAL 15 MG IV (17:07)
--- NOTE | 2021-05-20 19:32 | CM.SWNOTE ---
Addendum entered by Jennifer Sanchez 05/20/21 19:36: BRICK SIDING APPLICATOR Note Patient's was at bedside with patient most of the day but needed to return home to care for children. requests update on patient's plan of care. Patient's Zaire can be reached at: Ph. # [phone] KAT Byrne Original Note: BRICK SIDING APPLICATOR Note BRICK SIDING APPLICATOR calls [facility] for voluntary bed census. BRICK SIDING APPLICATOR calls [facility] intake, it is initially reported that they have beds and can review patient. [facility] later calls to report that they have rooms but not enough providers. It is reported that clinical packet referral can be faxed for review for tomorrow. BRICK SIDING APPLICATOR faxes packet for review. BRICK SIDING APPLICATOR calls [facility] and it is reported that they do not have beds appropriate for patient. BRICK SIDING APPLICATOR calls [facility] intake, it is reported that they have beds and can review patient. BRICK SIDING APPLICATOR f/u and calls at [phone] and it is reported that patient is still being reviewed. (Intake Ph. # [phone]) JIG BORING MACHINE SET UP OPERATOR and ED team to f/u with [facility] if patient is not accepted by the time this BRICK SIDING APPLICATOR's shift ends. Plan: Continue to seek voluntary inpatient bed for patient. KAT Byrne
[2021-05-21 00:23] VITALS: BP 139/74; PULSE 80; RESP 16; O2SAT 96
[2021-05-21 05:49] VITALS: BP 129/81; PULSE 69; RESP 16; O2SAT 99
[2021-05-21 22:35] LABS: Acinetobacter baumannii Not Detected (Not Detect); Candida albicans Not Detected (Not Detect); Candida glabrata Not Detected (Not Detect); Candida krusei Not Detected (Not Detect); Candida parapsilosis Not Detected (Not Detect); Candida tropicalis Not Detected (Not Detect); E. coli Not Detected (Not Detect); Enterobacter cloacae complex Not Detected (Not Detect); Enterobacteriaceae species Not Detected (Not Detect); Enterococcus species Not Detected (Not Detect); Haemophilus influenzae Not Detected (Not Detect); Listeria monocytogenes Not Detected (Not Detect); Neisseria meningitidis Not Detected (Not Detect); Proteus species Not Detected (Not Detect); Pseudomonas aeruginosa Not Detected (Not Detect); Serratia marcescens Not Detected (Not Detect); Staphylococcus species Not Detected (Not Detect); Streptococcus agalactiae (Gr B Not Detected (Not Detect); Streptococcus pneumonia Not Detected (Not Detect); Streptococcus pyogenes (Gr A) Not Detected (Not Detect); Streptococcus species Not Detected (Not Detect)
== END 2021-05-21 06:10 ==
PROVIDERS: Emergency Medicine; Emergency Provider Emergency Medicine
DX: F23 Brief psychotic disorder (principal); Z20.822 Contact with and (suspected) exposure to COVID-19
CPT/HCPCS: 36415; 70450; 80053; 80305; 80320; 80329; 81001; 81025; 82550; 82553; 83605; 83735; 84145; 84443; 84484; 85025; 87040; 87077; 87150; 87205; 87635; 93005; 96374; 99285; C9803; G0480; J1885

== ENCOUNTER 2021-09-01 11:34 | Emergency (ER) | payer OTHER, SELFPAY ==
[2021-09-01 12:26] VITALS: BP 167/96; PULSE 91; RESP 16; TEMP 36.1; O2SAT 97; BMI 38.4
[2021-09-01 13:33] LABS: Add Manual Diff / Slide Review NO; Basophils Absolute Auto 100 /uL (0-100); Basophils Percent Auto 0.7 % (0-2); Eosinophils Absolute Auto 100 /uL (0-450); Eosinophils Percent Auto 0.7 % (2-4); Hematocrit 38.8 % (36-46); Hemoglobin 13.3 g/dL (12.0-16.0); Lymphocytes Absolute Auto 1400 /uL (1100-4500); Lymphocytes Percent Auto 15.1 % (25-40); Mean Corpuscular HGB Conc 34.3 % (30-36); Mean Corpuscular Hemoglobin 27.8 PG (26-34); Mean Corpuscular Volume 81.1 fL (80-100); Monocytes Absolute Auto 500 /uL (0-900); Monocytes Percent Auto 5.9 % (3-14); Neutrophils Absolute Auto 7000 /uL (1500-7000); Neutrophils Percent Auto 77.6 % (50-75); Platelet Count 403 X10^3/uL (150-400); Red Blood Cell Count 4.78 X10^6/uL (4.0-5.2); Red Cell Distribution Width 13.2 % (11.6-14.8)
[2021-09-01 13:43] LABS: Ur Creatinine Normal (Normal); Ur Specific Gravity Normal (Normal); Urine pH Normal (Normal)
[2021-09-01 13:44] LABS: UR Morphine/Opiate cutoff 300 Negative (Negative); Urine Amphetamines Negative (Negative); Urine Barbiturates Negative (Negative); Urine Benzodiazepines Negative (Negative); Urine Cocaine Negative (Negative); Urine MDMA Negative (Negative); Urine Methadone Negative (Negative); Urine Methamphetamines Negative (Negative); Urine Oxycodone Negative (Negative); Urine Phencyclidine Negative (Negative); Urine Tetrahydrocannabinol Positive (Negative); Urine Tricyclic Antidepressant Negative (Negative)
[2021-09-01 13:46] LABS: Acetaminophen < 10 ug/mL (10-30); Alanine Aminotransferase 24 IU/L (<35); Albumin 4.8 g/dL (3.5-5.0); Albumin Globulin Ratio 1.5 (1.0-2.8); Alkaline Phosphatase 63 U/L (38-126); Aspartate Aminotransferase 23 IU/L (14-36); BUN Creatinine Ratio 10.4 (6-22); Bilirubin Total 0.5 mg/dL (0.2-1.3); Blood Urea Nitrogen 8 mg/dL (7-17); Calcium 9.2 mg/dL (8.4-10.2); Carbon Dioxide 28 mmol/L (22-32); Chloride 102 mmol/L (98-107); Estimated Glomerular Filt Rate > 60 mL/min (>60); Ethanol (ETOH) < 10 mg/dL; Globulin 3.3 g/dL (1.7-4.1); Glucose 97 mg/dL (70-100); HEMOLYSIS < 15 (0-50); Potassium 3.7 mmol/L (3.4-5.1); Salicylate < 1.0 mg/dL (<20); Sodium 140 mmol/L (137-145); Total Protein 8.1 g/dL (6.3-8.2)
[2021-09-01 14:09] LABS: Free T4, Direct Thyroxine 1.26 ng/dL (0.78-2.19)
[2021-09-01 14:22] LABS: Thyroid Stimulating Hormone 1.67 uIU/mL (0.47-4.68)
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
[2021-09-01 17:17] LABS: COVID19 -Nasal RAPID Negative (Negative)
[2021-09-01 18:00] VITALS: BP 139/76; PULSE 87; O2SAT 98
[2021-09-01 18:03] VITALS: BP 139/76; PULSE 86; O2SAT 99
--- NOTE | 2021-09-01 18:53 | PC.NURSE ---
Pt is cooperative and teary. States she is processing her thoughts and feelings. States she feels safe and no intention of self harm.
--- NOTE | 2021-09-01 19:25 | CM.SWNOTE ---
NANOTECHNOLOGIST Note NANOTECHNOLOGIST dispatches DCR once patient is medically clear. Alistair is assigned as DCR and calls reporting that he has several dispatches this evening and may not get to patient's evaluation this shift. NANOTECHNOLOGIST reviews the above with charge account clerk, RN and ED providers Dr. Mahoney and Dr. Dow. Patient's cousin started filling out declaration form for patient and plans to return to ED to complete it. NANOTECHNOLOGIST to call patient's regarding the current status of waiting for further DCR evaluation. Plan: ED to f/u with DCR evaluation results, patient's POC pending DCR determination. KAT Byrne
[2021-09-01] MEDS: LORazepam 0.5 MG TABLET 1 MG PO (20:04)
[2021-09-01] MEDS: IBUPROFEN 400 MG TABLET 800 MG PO (20:10)
--- NOTE | 2021-09-01 21:25 | PC.NURSE ---
DCR on zoom to speak with pt
--- NOTE | 2021-09-01 23:59 | PC.NURSE ---
spoke with Eliot faxed information to [facility], not expecting a bed until tomorrow, Eliot will relay information to Areli in the am
--- NOTE | 2021-09-02 05:11 | PC.NURSE ---
pt independently walked to the bathroom with a steady gate.
[2021-09-02 06:01] VITALS: BP 126/79; PULSE 86; RESP 16; O2SAT 100
[2021-09-02 06:48] LABS: Creatine Kinase 130 U/L (30-135); Magnesium 2.3 mg/dL (1.6-2.3)
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
[2021-09-02 13:21] VITALS: BP 136/91; PULSE 89; RESP 16; TEMP 36.3; O2SAT 100
== END 2021-09-02 14:00 ==
PROVIDERS: Emergency Provider Emergency Medicine
DX: F29 Unspecified psychosis not due to a substance or known physiological condition (principal); R10.2 Pelvic and perineal pain; Z20.822 Contact with and (suspected) exposure to COVID-19
CPT/HCPCS: 36415; 80053; 80305; 80320; 80329; 81003; 81025; 82550; 83735; 84439; 84443; 85025; 87070; 87205; 87210; 87252; 87635; 93005; 93010; 99284; C9803; G0480

== ENCOUNTER → 2023-10-19 13:33 | Outpatient (CLI) | payer OTHER, SELFPAY ==
--- NOTE | 2023-10-21 14:24 | DIET.OUTPTC ---
Dietary Outpatient Consultation Note Consultation Date: 10/19/2023 Assessment: 43 y F referred to dietitian for pre-DM, HTN, BMI 40.0-44.9. Antonietta reports wanting to work on meal planning and physical activity to help prevent diabetes, BP, and weight loss. Has made efforts to reduce sodium use at dinner and choose low sodium snacks. Is working to reduce amount of times out to eat at dinner. Diet recall: B-coffee w/ milk, sometimes instant oats, hard to eat/feel hungry with busy mornings L-waits til after work at 1:15p, is very hungry- has sandwich or goes to fast food D-spaghetti, chicken/potatoes Out to eat for dinner sometimes -pizza, Jordanian 1-1.5 bottles of water, 2-3 cups tea, no sugar sweetened beverages Physical activity- none currently Ht: - Wt: - BMI: - Nutrition Diagnosis: Altered nutrition related lab (A1c, lipid panel) r/t convenient, energy dense food intake aeb diet recall, A1c 5.9%, LDL 139, TG 177, Cholesterol 214 Interventions: 1. Balanced, carb-consistent meals 1. Educ on plate method, macros, sat. fat 2. Educ on label reading 3. Meal planning for lunch 4. Importance of breakfast 2. Increased fiber intake -Educ on fiber sources 2. Reviewed meaning of labs in correlation w/ nutrition and activity 3. Continue reduced sodium choices -Educ on components of DASH diet for HTN Goals: 1. Plan lunches: sandwich w/ meat, veg, cheese or salad w/ protein + fruit or veg OR if need to go out to eat, pair with fiber source (i.e. double apples at [employer]) 2. Physical activity - 20 min walks daily or 10-20 minute exercise video Monitoring/Evaluations: f/u in 2 months Electronically Signed by: Madelin Mccann 10/21/23 14:25 Clinical Dietitian [address] [id number]
== END ==
PROVIDERS: PCP Registered Nurse; Referring Provider Registered Nurse
DX: R73.03 Prediabetes (principal); I10 Essential (primary) hypertension; Z68.41 Body mass index [BMI] 40.0-44.9, adult; Z71.3 Dietary counseling and surveillance
CPT/HCPCS: 97802